=== PATIENT | male | born 1985 | race Two or more races ===

== ENCOUNTER → 2019-04-19 | Day surgery (SDC) | payer OTHER, MEDICAID ==
[2019-04-18 15:11] LABS: Basophils # (auto) 0.1 uL; Basophils % (auto) 0.5 % (0.0-2.0); Eosinophils # (auto) 0.6 uL; Eosinophils % (auto) 4.1 % (0.0-7.0); Hematocrit 44.2 % (41.0-53.0); Hemoglobin 15.3 g/dL (13.5-17.5); Lymphocytes # (auto) 2.7 uL; Lymphocytes % (auto) 19.4 % (10.0-50.0); Mean Corpuscular Hemoglobin 30.6 pg (28.0-32.0); Mean Corpuscular Hgb Conc. 34.5 g/dL (32.0-36.0); Mean Corpuscular Volume 88.7 fL (80.0-100.0); Monocytes # (auto) 0.6 uL; Monocytes % (auto) 4.6 % (0.0-12.0); Neutrophils # (auto) 9.8 uL; Neutrophils % (auto) 71.4 % (37.0-80.0); Nucleated Red Blood Cells % 0.1 %; Platelet Count (auto) 269 10^3/uL (140-450); Red Blood Cells 4.99 10^6/uL (4.5-5.90); White Blood Cell 13.7 10^3/uL (4.4-10.8)
[2019-04-18 15:16] LABS: Urine Bacteria NONE SEEN /hpf (None Seen); Urine Blood Negative /uL (Negative); Urine WBC <1 /hpf (0 - 3)
[2019-04-18 15:28] LABS: INR 0.98 (0.9-1.15); Partial Thromboplastin Time 28.7 sec (23.64-32.05)
[2019-04-18 15:30] LABS: Albumin 3.8 g/dL (3.4-5.0); BUN/Creatinine Ratio 7.4; Calcium 9.2 mg/dL (8.5-10.1)
[2019-04-18 15:33] LABS: Bilirubin, Total 0.7 mg/dL (0.2-1.0)
[2019-04-18 15:40] LABS: Potassium 2.7 mmol/L (3.5-5.1)
[~2019-04-19] VITALS: Ht 170.2 cm; Wt 68.0 kg
[~2019-04-19] MED LIST: ATOR10TA52 PO; BENZ2TAB2 PO; ERGO1CAP23 PO; GLIM4TAB42 PO; INSLANTI SC; INSU300I SC; LITH300C3 PO; MAGN400C2 PO; METF-370 PO; OXCA150T3 PO; PALI156I IM; POTASSIUM CHL 20MEQ/100ML 100 ML IV ONE; SERT-274 PO; SITA100T7 PO; ceFAZolin 1GM/50ML 50 ML IV ONE
[2019-04-19 10:51] VITALS: BP 135/91
== END | disposition home or self-care (01) ==
LOC: SUR 09:56
PROVIDERS: ATTEND Podiatrist Foot & Ankle Surgery
DX: Z01.812 Encounter for preprocedural laboratory examination (principal); Q66.52 Congenital pes planus, left foot
CPT/HCPCS: 36415; 80053; 81001; 82962; 84132; 85025; 85610; 85730; J0690; J3480

== ENCOUNTER → 2019-04-26 | Day surgery (SDC) | payer OTHER, MEDICAID ==
[~2019-04-26] VITALS: Ht 170.2 cm; Wt 68.0 kg
[~2019-04-26] MED LIST changes: -POTASSIUM CHL 20MEQ/100ML 100 ML IV ONE
== END | disposition home or self-care (01) ==
LOC: SUR 07:49
PROVIDERS: ATTEND Podiatrist Foot & Ankle Surgery
DX: Z01.812 Encounter for preprocedural laboratory examination (principal); Q66.52 Congenital pes planus, left foot; F32.9 Major depressive disorder, single episode, unspecified; F41.9 Anxiety disorder, unspecified; Z88.5 Allergy status to narcotic agent; E11.9 Type 2 diabetes mellitus without complications; F17.210 Nicotine dependence, cigarettes, uncomplicated; Z79.4 Long term (current) use of insulin; Z79.899 Other long term (current) drug therapy
CPT/HCPCS: 36415; 82962; 84132; J0690